=== PATIENT | female | born 1945 | race Caucasian/White ===

== ENCOUNTER → 2018-08-23 | Outpatient (CLI) | payer MEDICARE, OTHER ==
[~2018-08-23] MED LIST: CHOL10002; CYAN500 PO; MULTI VITAMIN1 EACH; PROBIOTIC1 EAC3 PO; Robaxin-750750 MG PO; Voltaren100 GM TOP
[2018-08-27 08:11] LABS: CREATININE, URINE 105.2 mg/dL (Not Estab.); N-TELO/CREAT. RATIO 34 (0-89); N-TELOPEPTIDE 321 nmol BCE (Not Estab.)
== END | disposition home or self-care (01) ==
LOC: LAB 10:11 → LAB SHORT 10:11
PROVIDERS: Internal Medicine
DX: Z13.220 Encounter for screening for lipoid disorders (principal); Z13.1 Encounter for screening for diabetes mellitus; Z11.59 Encounter for screening for other viral diseases; M81.0 Age-related osteoporosis without current pathological fracture; Z79.899 Other long term (current) drug therapy
CPT/HCPCS: 82523; 82570

== ENCOUNTER 2021-05-11 11:40 | Inpatient (IN) | payer MEDICARE, OTHER ==
[~2021-05-11] VITALS: Ht 162.6 cm; Wt 58.1 kg
[2021-05-11 12:29] LABS: Hematocrit 35.5 % (33.0-51.0); Hemoglobin 11.8 g/dL (11.5-16.0); Mean Corpuscular HGB 33.7 pg (26.0-34.0); Mean Corpuscular HGB Conc 33.2 g/dL (31.5-36.5); Mean Corpuscular Volume 101 fL (80-100); Platelet Count 177 K/mm3 (150-400); RDW Coefficient Variation 13.6 % (11.7-14.2); RDW Standard Deviation 51.6 fL (35.1-46.3); White Blood Cell Count 9.43 K/mm3 (4.00-11.30)
[2021-05-11 12:34] LABS: Albumin, Blood 3.8 g/dL (3.4-5.0); Bilirubin, Total 0.4 mg/dL (0.1-1.0); Calcium, Blood 9.4 mg/dL (8.5-10.1); Creatinine, Blood 1.2 mg/dL (0.40-1.00); Potassium, Blood 3.3 mmol/L (3.5-5.5); Total Protein, Blood 7.8 g/dL (6.4-8.2)
[2021-05-11 13:15] LABS: BAND PERCENT MAN 10 % (0-8); BASOPHILS PERCENT MAN 0 % (0-2); EOSINOPHILS PERCENT MAN 0 % (0-6); LYMPHOCYTES ABSOLUTE MAN 0.66 K/mm3 (0.84-5.20); LYMPHOCYTES PERCENT MAN 7 % (21-46); MONOCYTES ABSOLUTE MAN 0.47 K/mm3 (0.16-1.47); MONOCYTES PERCENT MAN 5 % (4-13); NEUTROPHILS ABSOLUTE MAN 8.29 K/mm3 (1.96-9.15); SEG NEUTROPHILS PERCENT MAN 78 % (41-73); TOTAL CELLS COUNTED 100
[2021-05-11 17:32] LABS: Source, Urine Straight Cath
[2021-05-11 17:36] LABS: Appearance, Urine Hazy (Clear); Bilirubin, Urine Neg (Neg); Blood, Urine 2+ (Neg); Color, Urine Yellow (P-Yellow); Glucose Qualitative, Urine Neg (Neg); Ketones, Urine 1+ (Neg); Leukocyte Esterase, Urine Neg (Neg); Nitrite, Urine Neg (Neg); Protein, Urine 2+ (Neg); Urobilinogen, Urine 1+ (Normal)
[2021-05-11] MEDS ORDERED: CALCIUM CIT 311 EAC7 PO (18:13)
[2021-05-11] MEDS ORDERED: ONDA4 PO (18:17)
[2021-05-11] MEDS ORDERED: FOLI1 PO (18:17)
[2021-05-11] MEDS ORDERED: MEMA10 PO (18:18)
[2021-05-11 18:49] LABS: Waxy Cast 0-2 /lpf (0)
[2021-05-11 18:50] LABS: Mucus Mod (0-Heavy)
[2021-05-11 18:51] LABS: Bacteria Many /hpf; Squamous Epithelial Cells Rare /hpf (Few)
--- NOTE | 2021-05-12 06:26 | NUR ---
SHIFT SUMMARY ASSUMED CARE OF PT AT 1900. PT IS A/OX4 BUT STILL IMPULSIVE AND DOES NT USE CALL LIGHT APPROPIATLY. HEART SOU[place] T[place]Y, TELE SHOWS SINUS TACH 100-120. PT HR ELEVATES TO 130BPM WITH ACTIVITY. LUNG SOUNDS ARE VERY COARSE. RT HAD TO DEEP SUCTION PT TWICE. PT ALSO USES SELF SUCTIONING. MUCUSE IS THICK AND YELLOW/BROWN. RT EDUCATED PT ON FLUTTER VALVE. PT STARTED SHIFT ON CPAP BUT WAS TITRATED TO 10L HIGHFLOW NC. SATURATIONS REMAINED ABOVE 95% UNTIL PT MOVES NC FROM NOSE DURING HER SLEEP OR DESATES WITH ACTIVITY. PT WAS A 1P ASSIST TO BSC. PT HAD TWO VERY LARGE BM. PT HAS A THORNTON DRAINING TONIO COLORED URINE. PT IS ABLE TO TURN HERSELF IN BED. PT HAS EXTENSINVE "RACOON" BRUSING ON HER FACE, IT IS DARKER TODAY THAN LAST NIGHT. PT HAS A SMALL AMOUNT OF BLOOD IN NASAL MUCUS, BUT NO DAPHNE BLEEDING. CALL LIGHT IN REACH, BED IN LOWEST POSITION, BED ALARM ON.
[2021-05-12 08:09] LABS: BASOPHILS ABSOLUTE AUTO 0.02 K/mm3 (0.00-0.23); BASOPHILS PERCENT AUTO 1 % (0-2); Hematocrit 35.5 % (33.0-51.0); Hemoglobin 11.5 g/dL (11.5-16.0); LYMPHOCYTES ABSOLUTE AUTO 0.57 K/mm3 (0.84-5.20); LYMPHOCYTES PERCENT AUTO 15 % (21-46); MONOCYTES ABSOLUTE AUTO 0.41 K/mm3 (0.16-1.47); MONOCYTES PERCENT AUTO 11 % (4-13); Mean Corpuscular HGB 33.3 pg (26.0-34.0); Mean Corpuscular HGB Conc 32.4 g/dL (31.5-36.5); Mean Corpuscular Volume 103 fL (80-100); Mean Platelet Volume 10.8 fL (9.1-12.4); Platelet Count 158 K/mm3 (150-400); RDW Coefficient Variation 13.6 % (11.7-14.2); RDW Standard Deviation 51.8 fL (35.1-46.3); Red Blood Cell Count 3.45 M/mm3 (3.80-5.20); White Blood Cell Count 3.81 K/mm3 (4.00-11.30)
[2021-05-12 08:14] LABS: EOSINOPHILS PERCENT AUTO 0 % (0-6); IMMATURE GRAN PERCENT AUTO 0 % (0-1); NEUTROPHILS ABSOLUTE AUTO 2.81 K/mm3 (1.96-9.15); NEUTROPHILS PERCENT AUTO 74 % (41-73)
[2021-05-12 08:30] LABS: Alanine Aminotransfer (ALT/SGP 48 U/L (12-78); Albumin, Blood 3.2 g/dL (3.4-5.0); Albumin/Globulin Ratio 0.8 (0.8-1.8); Alk Phos 79 U/L (50-136); Anion Gap 7 mmol/L (6-16); Aspartate Aminotrans (AST/SGOT 46 U/L (12-37); Bilirubin, Total 0.4 mg/dL (0.1-1.0); Blood Urea Nitrogen 20 mg/dL (8-24); Bun/Creatinine Ratio 31.1 (12.0-20.0); CO2, Blood 23 mmol/L (21-32); Chloride, Blood 114 mmol/L (98-108); Creatinine, Blood 0.64 mg/dL (0.40-1.00); Globulin, Blood 3.9 g/dL (2.2-4.0); Glomerular Filtration Rate >60 (60-); Glucose, Blood 123 mg/dL (70-99); Potassium, Blood 3.4 mmol/L (3.5-5.5); Sodium, Blood 144 mmol/L (136-145); Total Protein, Blood 7.1 g/dL (6.4-8.2)
--- NOTE | 2021-05-12 18:42 | NUR ---
Shift Summary: Patient was alert and oriented x4, responded well to commands, had a positive affect. She continues to have significant congestion and secretion in her upper airways, lower lobes sound mosty clear. She has a productive cough, frequently uses the pickle device, and uses the bedside suction device to remove secretions. RT came by in the morning to help remove secretions, they didn't do a full deep suction but got some from her throat. She started the shift on 11L of O2 and was titrated down to 6 and then down to 4 where she maintanes O2 sat in mid 90's. Upon exertion her O2 occasionally drops as low as 87 and quickly recovers. She was started on Remdesivir and is tolerating the medication well. Her periferal IV on her left arm was triggering occulusions. Because she has thin veins a powerglide was placed in her left arm. No acute events, will monitor and give report to oncoming nurse.
--- NOTE | 2021-05-12 18:55 | NUR ---
AGREE WITH PROMOTION WRITER SHIFT SUMMARY.
[2021-05-13 04:53] LABS: Hematocrit 29.7 % (33.0-51.0); Hemoglobin 9.8 g/dL (11.5-16.0); Mean Corpuscular HGB 33.4 pg (26.0-34.0); Mean Corpuscular Volume 101 fL (80-100); Mean Platelet Volume 11.5 fL (9.1-12.4); Platelet Count 166 K/mm3 (150-400); RDW Coefficient Variation 14.2 % (11.7-14.2); RDW Standard Deviation 52.4 fL (35.1-46.3); Red Blood Cell Count 2.93 M/mm3 (3.80-5.20); White Blood Cell Count 4.06 K/mm3 (4.00-11.30)
[2021-05-13 05:27] LABS: Alanine Aminotransfer (ALT/SGP 30 U/L (12-78); Albumin, Blood 2.4 g/dL (3.4-5.0); Albumin/Globulin Ratio 0.7 (0.8-1.8); Alk Phos 57 U/L (50-136); Anion Gap 5 mmol/L (6-16); Aspartate Aminotrans (AST/SGOT 37 U/L (12-37); Bilirubin, Total 0.5 mg/dL (0.1-1.0); Blood Urea Nitrogen 18 mg/dL (8-24); Bun/Creatinine Ratio 38.2 (12.0-20.0); CO2, Blood 22 mmol/L (21-32); Calcium, Blood 8.3 mg/dL (8.5-10.1); Chloride, Blood 119 mmol/L (98-108); Creatinine, Blood 0.47 mg/dL (0.40-1.00); Globulin, Blood 3.5 g/dL (2.2-4.0); Glomerular Filtration Rate >60 (60-); Glucose, Blood 90 mg/dL (70-99); Potassium, Blood 3.9 mmol/L (3.5-5.5); Sodium, Blood 146 mmol/L (136-145); Total Protein, Blood 5.9 g/dL (6.4-8.2)
--- NOTE | 2021-05-13 06:51 | NUR ---
SHIFT SUMMARY ASSUMED CARE OF PT AT 1900. PT IS A/OX4. HEART SOUNDS REGULAR, LUNG SOUNDS CORSE. PT REMAINED ON 4L NC T/O THE NIGHT. SATURATIONS MAINTAINED 95% AND UNLESS SHE TAKES IT OFF FOR A "BREAK" SHE SAYS. PT WAS A 1P ASSIST TO BSC. CONTIENT OF BOWEL. THORNTON DRAINING WITH GRAVITY, URINE IS LIGHTENING UP. CALL LIGHT IN RECH, BED IN LWOEST POSITION.
--- NOTE | 2021-05-13 08:02 | NUR ---
ASSUMPTION OF CARE Pt is awake and a/o x 4 sitting up in bed. She is doing her own oral care and spitting her secretions into the yankauer. She is [place]. Her powerglide is patent and infusing fluids as ordered. Her bland is in place and has yellow output. She has her call light in reach and is able to make her needs known.
--- NOTE | 2021-05-13 17:02 | NUR ---
SHIFT SUMMARY Pt is a/o x 3.Throughout the day she has had some difficulty with following directions. She is [place] so this could be contributing to the comprehension. This morning she mentioned that she was having a hard time swallowing pills and Dr Reddy ordered a speech eval. Speech found that she is not only having difficulty swallowing but pain with swallowing. She is now NPO. Dr Reddy was made aware and DC her PO meds. Dr Reddy also ordered a CT and since the pt's iodine allergy was listed and she was unsure if it was topical or to contrast the Opted for CT with no contrast which was relayed to the field artillery targeting technician. This morning her powerglide was occluded so the dressing was changed and it has been running ok ever since. The pt's has been updated twice today. The pt is able to make her needs known but continues to be impulsive and needs reminding of things.
[2021-05-14 04:03] LABS: Hematocrit 30.2 % (33.0-51.0); Hemoglobin 9.9 g/dL (11.5-16.0); Mean Corpuscular HGB 33.2 pg (26.0-34.0); Mean Corpuscular HGB Conc 32.8 g/dL (31.5-36.5); Mean Corpuscular Volume 101 fL (80-100); Mean Platelet Volume 11.5 fL (9.1-12.4); Platelet Count 182 K/mm3 (150-400); RDW Coefficient Variation 14.4 % (11.7-14.2); RDW Standard Deviation 53.1 fL (35.1-46.3); Red Blood Cell Count 2.98 M/mm3 (3.80-5.20); White Blood Cell Count 4.33 K/mm3 (4.00-11.30)
[2021-05-14 04:21] LABS: Alanine Aminotransfer (ALT/SGP 25 U/L (12-78); Albumin, Blood 2.5 g/dL (3.4-5.0); Albumin/Globulin Ratio 0.7 (0.8-1.8); Alk Phos 61 U/L (50-136); Anion Gap 7 mmol/L (6-16); Aspartate Aminotrans (AST/SGOT 26 U/L (12-37); Bilirubin, Total 0.3 mg/dL (0.1-1.0); Blood Urea Nitrogen 15 mg/dL (8-24); Bun/Creatinine Ratio 29.4 (12.0-20.0); CO2, Blood 23 mmol/L (21-32); Calcium, Blood 8.8 mg/dL (8.5-10.1); Chloride, Blood 116 mmol/L (98-108); Creatinine, Blood 0.51 mg/dL (0.40-1.00); Globulin, Blood 3.6 g/dL (2.2-4.0); Glomerular Filtration Rate >60 (60-); Glucose, Blood 97 mg/dL (70-99); Potassium, Blood 2.8 mmol/L (3.5-5.5); Sodium, Blood 146 mmol/L (136-145); Total Protein, Blood 6.1 g/dL (6.4-8.2)
--- NOTE | 2021-05-14 08:05 | NUR ---
ASSUMPTION OF CARE Pt is a/o x 3 but does have a hard time hearing and seems to not process directions at times. Oral care has been done and the pt was repositioned. She continues to suction her sputum. Her bland is patent with yellow urine output. Her powerglide flushes. She is able to make her needs known but can still be impulsive at times so the bed alarm is on for safety. She has her call light and personal items in reach.
--- NOTE | 2021-05-14 17:02 | NUR ---
SHIFT SUMMARY Pt is a/ x 3 with some confusion and [place]. She does seem a little more clear today than she did yesterday. She has been titrated down to 1 lpm on the NC and her sats are still in the high 90's. The CHANNEL MARKETING COORDINATOR assisted her with a shower this morning and she was able to ambulate to the bathroom with SBA. Speech did a follow up eval and found that her swallowing had improved from yesterday and changed her to a pureed diet with nectar thicj liquids and she seems to be doing ok with that. Dr Reddy also started her on IV fluids which are infusing now through her powerglide. Her sputum sample was collected and sent to the lab. Her bland is patent with yellow output. Pt has updated her earlier today. She is able to make her needs known but does still have the bed alarm on for safety.
[2021-05-15 04:14] LABS: Hemoglobin 9.6 g/dL (11.5-16.0); Mean Corpuscular HGB 33.2 pg (26.0-34.0); Mean Corpuscular HGB Conc 33.1 g/dL (31.5-36.5); Mean Corpuscular Volume 100 fL (80-100); Mean Platelet Volume 10.7 fL (9.1-12.4); Platelet Count 201 K/mm3 (150-400); RDW Coefficient Variation 14.4 % (11.7-14.2); Red Blood Cell Count 2.89 M/mm3 (3.80-5.20); White Blood Cell Count 5.36 K/mm3 (4.00-11.30)
[2021-05-15 04:34] LABS: Anion Gap 8 mmol/L (6-16); Blood Urea Nitrogen 16 mg/dL (8-24); Bun/Creatinine Ratio 31.8 (12.0-20.0); CO2, Blood 24 mmol/L (21-32); Calcium, Blood 8.2 mg/dL (8.5-10.1); Chloride, Blood 113 mmol/L (98-108); Glomerular Filtration Rate >60 (60-); Glucose, Blood 180 mg/dL (70-99); Sodium, Blood 145 mmol/L (136-145)
--- NOTE | 2021-05-15 05:59 | NUR ---
END OF SHIFT SUMMARY: AOx4, occassionally needed some redirection with time and events. Able to move all extremities indepedently but very weak. Uses the bedside commode with 1x assist. Weak unsteady gait. Pt is now on room air and was able to sustain oxygen saturation at mid to high 90's. Still has a productive cough with yellow/godfrey secretions. Pt able to use suction self independently. No BM. Continued to be on dyspaghia precautions, did state she will be ready to try another swallow evaluation so she can eat solid food vs thickened liquids or soft diet. Diamond remains patent and draining to gravity. K+ was 3.0 and notified graphics coordinator regarding lab value - advised to wait until day shift to report lab value as patient is not showing any signs or symptoms of low K+.
--- NOTE | 2021-05-15 07:33 | NUR ---
ASSUMPTION OF CARE Pt is a/o x baseline this morning. IV fluids continue to infuse as ordered. She is now on RA with an o2 sat of 94%. She is able to make her needs known and has her call light in reach.
[2021-05-15] MEDS ORDERED: ALBU90OI6 INH (11:56)
[2021-05-15] MEDS ORDERED: CEFD300 PO (11:57)
[2021-05-15] MEDS ORDERED: TIOT18 INH (11:57)
[2021-05-15] MEDS ORDERED: DECADRON6 M1 PO (11:58)
--- NOTE | 2021-05-15 13:32 | NUR ---
SUMMARY OF CARE Pt is being discharged home this afternoon. She has been a/o x 3-4 and much more clear today and able to follow directions. She has been on Room air all day with sats in the 90's. Her potassium was replaced with an IV infusion as ordered and she is finishing up her last dose of remdesivir. Her bland was dcd and she was able to ambulate and void in the toilet. She ate breakfast and lunch. She has had good PO intake. Her has been updated throughout the day and her med list was reviewed with him over the phone. is on the way to [facility] pharmacy to draft roller picker Rxs before heading over here to draft roller picker the pt. Pt is ready to go home.
== END 2021-05-15 14:30 | disposition home or self-care (01) | DRG 177 ==
LOC: ER 11:40 → PCU 11:41 → MEDS 11:41 → PCU 18:13
PROVIDERS: Internal Medicine; Nurse Practitioner Acute Care; Student in an Organized Health Care Education/Training Program; ADMIT Internal Medicine
PROC: 8E0ZXY6 Isolation (ICD-10-PCS; principal; 2021-05-12)
PROC: 3E0333Z Introduction of Anti-inflammatory into Peripheral Vein, Percutaneous Approach (ICD-10-PCS; 2021-05-12)
PROC: XW033E5 Introduction of Remdesivir Anti-infective into Peripheral Vein, Percutaneous Approach, New Technology Group 5 (ICD-10-PCS; 2021-05-12)
DX: U07.1 COVID-19 (principal); J12.82 Pneumonia due to coronavirus disease 2019; J96.01 Acute respiratory failure with hypoxia; J15.9 Unspecified bacterial pneumonia; N17.9 Acute kidney failure, unspecified; C34.90 Malignant neoplasm of unspecified part of unspecified bronchus or lung; E87.0 Hyperosmolality and hypernatremia; E87.6 Hypokalemia; R13.10 Dysphagia, unspecified; D64.9 Anemia, unspecified; S02.2XXA Fracture of nasal bones, initial encounter for closed fracture; Z88.5 Allergy status to narcotic agent; Z88.8 Allergy status to other drugs, medicaments and biological substances; Z79.899 Other long term (current) drug therapy; Z87.891 Personal history of nicotine dependence; Z90.89 Acquired absence of other organs; Z98.890 Other specified postprocedural states; W18.30XA Fall on same level, unspecified, initial encounter
CPT/HCPCS: 31720; 36415; 51702; 70450; 70491; 71045; 71046; 71260; 80048; 80053; 81001; 82550; 83735; 85025; 85027; 85379; 86140; 87070; 87086; 87205; 92526; 92610; 93005; 93010; 94640; 94660; 94667; 94760; 94762; 96365-59; 96372; 99285-25; A9270; G0378; J0248; J0696; J1100; J1650; J3480; J7030; J7050; Q9967

== ENCOUNTER → 2021-05-31 | Outpatient (CLI) | payer MEDICARE, OTHER ==
[~2021-05-31] MED LIST changes: +ALBU90OI6 INH; +CALCIUM CIT 311 EAC7 PO; +CEFD300 PO; +DECADRON6 M1 PO; +FOLI1 PO; +MEMA10 PO; +ONDA4 PO; +TIOT18 INH
[2021-05-31 07:40] LABS: Source, Urine Clean Catch
[2021-05-31 15:25] LABS: Bilirubin, Urine Neg (Neg); Blood, Urine Neg (Neg); Glucose Qualitative, Urine Neg (Neg); Ketones, Urine Neg (Neg); Leukocyte Esterase, Urine Neg (Neg); Nitrite, Urine Neg (Neg); Protein, Urine Neg (Neg); Urobilinogen, Urine NORM (Normal)
[2021-05-31 15:31] LABS: Appearance, Urine Clear (Clear); Color, Urine Pale Yellow (P-Yellow)
== END ==
LOC: LAB SHORT 07:39 → LAB FUT 05-30 13:50
PROVIDERS: Internal Medicine
DX: R82.90 Unspecified abnormal findings in urine (principal)
CPT/HCPCS: 81003